=== PATIENT | male | born 1965 | race Caucasian/White ===

== ENCOUNTER 2016-12-03 06:00 | Inpatient (IN) | payer MEDICARE, MEDICAID ==
[~2016-12-03] VITALS: Ht 167.6 cm; Wt 53.6 kg
[2016-12-03 06:05] VITALS: Ht 167.6 cm; Wt 53.6 kg
[2016-12-03] MEDS ORDERED: SOD CHLORIDE 0.9% 1,000 ML IV STA (06:21)
[2016-12-03] MEDS ORDERED: ONDANSETRON 4 MG INJ IV STA (06:21)
[2016-12-03] MEDS ORDERED: DIAZEPAM 5 MG/ML SYG IV ONE ×2 (06:30→08:30)
--- NOTE | 2016-12-03 06:36 | ERA ---
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 His family tells me that he has not seen a physician steadily for his disease. The family states that they have been trying to get into the movement clinic at [facility]. He has not recently had any fever, coughing, congestion, vomiting, or diarrhea. They state over the last few days his disease has progressed to the point where he has lost his bladder and urinated on the couch and in his bed. He can no longer control his movements at all. He is here because he is having muscle pain secondary to constant movement. He has not been taking any medications for the disease. Nothing seems to help or worsen his symptoms. Remainder of the systems are negative. ROS All systems reviewed and are negative except as per history of present illness. Physical Exam Vitals Vital Signs Date Time Temp Pulse Resp B/P Pulse Ox O2 Delivery O2 Flow Rate FiO2 12/03/16 06:05 97.9 103 22 122/81 100 Physical Exam Const: [] Well-developed thin male on the bed with uncontrollable choreiform movement Head: Atraumatic normocephalic Eyes: Normal Conjunctiva ENT: Normal External Ears, Nose and Mouth. Neck: Full range of motion. Resp: Clear to auscultation bilaterally Cardio: Regular rate and rhythm, no murmurs Abd: Soft, non tender, non distended. Normal bowel sounds Skin: No petechiae or rashes Back: No midline or flank tenderness Ext: No cyanosis, or edema Neur: Awake and alert Result Diagram: 12/03/16 0649 12/03/16 0649 Results 24 hrs Laboratory Tests Test 12/03/16 06:49 White Blood Count 7.610^3/ul Red Blood Count 4.1110^6/ul Hemoglobin 11.7g/dl Hematocrit 35.3% Mean Corpuscular Volume 85.9fl Mean Corpuscular Hemoglobin 28.5pg Mean Corpuscular Hemoglobin Concent 33.1g/dl Red Cell Distribution Width 12.9% Platelet Count 75885^3/UL Mean Platelet Volume 9.9fl Neutrophils % 75.7% Lymphocytes % 16.4% Monocytes % 6.6% Eosinophils % 0.5% Basophils % 0.4% Nucleated Red Blood Cells % 0.0/100WBC Neutrophils # 5.810^3/ul Lymphocytes # 1.310^3/ul Monocytes # 0.510^3/ul Eosinophils # 0.010^3/ul Basophils # 0.010^3/ul Nucleated Red Blood Cells # 0.010^3/ul Sodium Level 142mmol/L Potassium Level 3.8mmol/L Chloride Level 111mmol/L Carbon Dioxide Level 27mmol/L Anion Gap 8 Blood Urea Nitrogen 34mg/dl Creatinine 0.64mg/dl Glucose Level 105mg/dl Calcium Level 8.9mg/dl Total Bilirubin 0.6mg/dl Direct Bilirubin 0.00mg/dl Indirect Bilirubin 0.6mg/dl Aspartate Amino Transf (AST/SGOT) 53IU/L Alanine Aminotransferase (ALT/SGPT) 51IU/L Alkaline Phosphatase 115IU/L Creatine Kinase 1080IU/L Total Protein 6.9g/dl Albumin 4.0g/dl Globulin 2.90g/dl Albumin/Globulin Ratio 1.37 Current Medications Medications (Trade) Dose Ordered Sig/Ramona Route PRN Reason Start Time Stop Time Status Last Admin Dose Admin Sodium Chloride (NS) 1,000 ml @ 1,000 mls/hr Q1H STAT IV 12/03/16 06:21 12/03/16 07:20 DC 12/03/16 06:54 Diazepam (Valium) 5 mg ONCE ONCE IV 12/03/16 06:30 12/03/16 06:31 DC 12/03/16 06:54 Ondansetron HCl (Zofran Inj) 4 mg ONCE STAT IV 12/03/16 06:21 12/03/16 06:24 DC 12/03/16 06:54 Diazepam (Valium) 5 mg ONCE ONCE IV 12/03/16 08:30 12/03/16 08:31 DC 12/03/16 08:22 Procedures/MDM Differential includes but is not limited to uncontrolled [place]'s chorea, rhabdomyolysis secondary to muscle breakdown, dehydration Patient is unable to lie still for CT of his head. 0830: Evaluation of the patient reveals that he feels better after the Valium IV and the IV fluids. He still has the uncontrolled choreiform movements. Given the fact that he is experiencing some significant muscle breakdown I feel it is most prudent to have him admitted to the hospital for further evaluation and treatment by a neurologist. Departure Diagnosis: Primary Impression: [place]'s chorea Additional Impressions: Rhabdomyolysis Qualified Code: M62.82 - Non-traumatic rhabdomyolysis Dehydration Condition: VALENTINO Guillaume December 03, 2016 06:36
[2016-12-03 06:58] LABS: ADD SCAN DIFF NO
[2016-12-03 07:00] LABS: BASOPHILS % 0.4 % (0.0-2.0); EOSINOPHILS % 0.5 % (0.0-7.0); HEMATOCRIT 35.3 % (42.0-52.0); HEMOGLOBIN 11.7 g/dl (14.0-18.0); LYMPHOCYTES # 1.3 10^3/ul (0.8-2.9); LYMPHOCYTES % 16.4 % (15.0-51.0); MEAN CORPUSCULAR HEMOGLOBIN 28.5 pg (29.0-33.0); MEAN CORPUSCULAR HGB CONC 33.1 g/dl (32.0-37.0); MEAN CORPUSCULAR VOLUME 85.9 fl (82.0-101.0); MEAN PLATELET VOLUME 9.9 fl (7.4-10.4); MONOCYTE # 0.5 10^3/ul (0.3-0.9); MONOCYTES % 6.6 % (0.0-11.0); NEUTROPHIL # 5.8 10^3/ul (1.6-7.5); NEUTROPHILS % 75.7 % (39.0-77.0); PLATELET COUNT 268 10^3/UL (140-415); RED BLOOD COUNT 4.11 10^6/ul (4.70-6.10); RED CELL DISTRIBUTION WIDTH 12.9 % (11.5-14.5); WHITE BLOOD COUNT 7.6 10^3/ul (4.8-10.8)
--- NOTE | 2016-12-03 07:09 | RADRPT ---
PROCEDURE: XR Chest. CLINICAL INDICATION: Shortness of breath. Altered mental status. TECHNIQUE: Single frontal view. COMPARISON: None. FINDINGS: The lungs are clear. The heart size is normal. There is no pleural effusion. There is no pneumothorax. IMPRESSION: 1. Normal chest radiograph. RPTAT: QQ .Farzad Peters MD, MD Date Time Electronically viewed and signed by .Farzad Peters MD, MD on 12/03/2016 07:09 .R/
[2016-12-03 07:30] LABS: ALBUMIN/GLOBULIN RATIO 1.37; BILIRUBIN,INDIRECT 0.6 mg/dl (0-1.1); BILIRUBIN,TOTAL 0.6 mg/dl (0.2-1.3); CALCIUM 8.9 mg/dl (8.4-10.2); CREATININE 0.64 mg/dl (0.61-1.24); POTASSIUM 3.8 mmol/L (3.5-5.1); TOTAL PROTEIN 6.9 g/dl (6.1-8.1)
[2016-12-03] MEDS ORDERED: ONDANSETRON 4 MG INJ IV PRN ×2 (09:30→11:00)
[2016-12-03] MEDS ORDERED: ACETAMINOPHEN 325 MG TAB PO PRN ×2 (09:30→11:00)
[2016-12-03 10:26] VITALS: TEMP 98
[2016-12-03 11:05] VITALS: BP 95/61; PULSE 83; RESP 18
[2016-12-03] MEDS: DEXTROSE 5%-0.9% NACL 1,000 ML IV SCH ×2 (11:44→22:22)
[2016-12-03] MEDS: HEPARIN 5,000 UNIT/0.5 ML VIAL SC SCH ×2 (11:50→21:11)
--- NOTE | 2016-12-03 12:03 | HP ---
DATE OF ADMISSION: 12/03/2016 REASON FOR ADMISSION: Decreased p.o. intake, increasing agitation. 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 Since that time, he has been slowly deteriorating. The patient was seen by neurologist more than 5 years ago and since that time has had no further followup. He stays on the couch of his next of kin, otherwise, requires significant assistance with feeding. Recently, he mortensen s had worsening of his symptoms over the past 4 to 5 days with increased uncontrolled movements and decreased p.o. intake. Family state that he requires significant assistance and they are unable to provide this at present. They also state that they have been trying to get him to [facility] Neurology fo r further evaluation, but have been largely unsuccessful. On admission, the patient was found to mortensen ve mild rhabdomyolysis, otherwise, appears comfortable but has significant choreiform movements. PAST MEDICAL HISTORY: As above. MEDICATIONS PRIOR TO ADMISSION: None. ALLERGIES: NONE. SOCIAL HISTORY: Nonsmoker, no alcohol, no history of drug use. FAMILY HISTORY: His brother has Colby's chorea. SYSTEMS REVIEW: A 12-point review of systems currently unable to perform. PHYSICAL EXAMINATION: GENERAL: Chronically ill appearing gentleman significant irregular choreiform movements. Responds to occasional questions. VITAL SIGNS: Temperature 98, pulse is 94, blood pressure 100/57, O2 saturation 98% on room air. NECK: Supple. No JVD or lymphadenopathy. CARDIAC: S1, S2, no added sounds or murmurs. CHEST: Diminished air entry bilaterally. ABDOMEN: Soft, nontender. No guarding or rebound. EXTREMITIES: No cyanosis, clubbing, edema. NEUROLOGIC: As above. LABORATORY DATA: White count 6.7, hemoglobin 11.7, platelets within normal limits. BUN 34, creatin ine 0.64. Creatinine kinase 1080. EKG showed normal sinus rhythm, no acute ischemic changes. IMPRESSION AND PLAN: Recent deterioration in a patient with advanced [place]mon's chorea. Deterior ation could be secondary to underlying infection including urinary tract infection or could be a darby ural progression of his neurological disorder. The patient has evidence of mild rhabdomyolysis, lik bruce secondary to neuromuscular disease and dehydration. PLAN: 1. IV fluid rehydration. 2. Correct electrolytes. 3. Speech therapy evaluation. 4. Neurology evaluation. 5. warehouse production worker and case management input as the patient will likely need placement at the request of his next of kin. Dictated By: DAYLIN GALDAMEZ/KELVIN Conf#: [id number] DID#: [id number]
[2016-12-03] MEDS: LORAZEPAM 2 MG INJ IV PRN (13:06)
[2016-12-03] MEDS ORDERED: morphine 2 MG INJ IV PRN (15:30)
[2016-12-03] MEDS ORDERED: LORAZEPAM 2 MG INJ IV ONE (15:30)
--- NOTE | 2016-12-03 17:19 | CONS ---
DATE OF ADMISSION: 12/03/2016 DATE OF CONSULTATION: 12/03/2016 REASON FOR CONSULTATION: Rhabdomyolysis, azotemia. PHYSICIAN REQUESTING CONSULT: Dr. Cole. HISTORY OF PRESENT ILLNESS: This is a 50-year-old male with Colby's chorea diagnosed approxim xochitl 12 years ago who has had progression of his disease. The patient has not been followed up by neurologist. Last visit was approximately several years ago. The history is obtained by his family at bedside who stated over the last several days they have noticed worsening movements, uncontrolle d, decreased oral intake, as a result the patient's family brought him to [facility] for evaluation. Upon arrival, the patient's blood pressure was normotensive with systolic pressu re of 122. Laboratory data showed evidence of rhabdomyolysis with a CK level 1000 and underlying az otemia. In the emergency room, the patient was given IV hydration with normal saline and was placed on continuous fluid resuscitation. Patient was also given Zofran, Ativan and Valium in the emergen cy room. In terms of the patient's renal history, the patient had no prior history of acute kidney injury or chronic kidney disease. The patient has no recent history of NSAID use. No history of contrast exp osure. The patient is not taking any antihypertensive medications at home. There has been no repor ts of frothy urine, no hematuria, dysuria or hemoptysis. PAST MEDICAL HISTORY: As stated above, history of progressive Donley's chorea. PAST SURGICAL HISTORY: None. ALLERGIES: NO KNOWN DRUG ALLERGIES. FAMILY HISTORY: No family history of kidney disease or heart disease. Patient's brother has Huntin gton's chorea. SOCIAL HISTORY: Does not drink, smoke or do drugs. MEDICATIONS: The patient's medications have been reviewed. None. REVIEW OF SYSTEMS: A 14-point review of systems was conducted. Pertinent positives in HPI, otherwi se negative. Please note history is obtained by reviewing medical records and speaking to patient's family. PHYSICAL EXAMINATION: VITAL SIGNS: Blood pressure 95/61, respiration 18, pulse 83, temperature 98.7. HEENT: Head is normocephalic. NECK: Supple. HEART: Regular rate. LUNGS: Show diminished breath sounds at the base. ABDOMEN: Soft, nontender to palpation. No rebound or guarding. EXTREMITIES: Negative for clubbing, cyanosis. No edema. DERMATOLOGIC: No rashes. MUSCULOSKELETAL: No joint effusions. NEUROLOGIC: The patient has uncontrolled upper and lower extremity irregular choreiform movements. LABORATORY DATA: Shows sodium 142, potassium 3.9, chloride 111, BUN 34, creatinine 0.64. AST 53. CK level is 1000, white count 7.6, hemoglobin 11.7, hematocrit 35.3, platelet count is 268. The pat ient's chest x-ray shows no acute findings. ASSESSMENT AND PLAN: This is a 50-year-old male who presents with: 1. Rhabdomyolysis. The patient's etiology is secondary to choreiformic irregular movements muscle contractions. The patient's CK levels are mildly elevated at 1000. Recommendation to continue IV f luids at current rate. We will monitor closely for any signs of worsening renal dysfunction, acute kidney injury. Otherwise, we will continue to monitor closely. 2. Azotemia, etiology is likely secondary to volume depletion. Plan at this point is to check urin alysis with microanalysis. Continue to monitor renal function closely in the setting of rhabdomyoly sis. Continue IV hydration. 3. Anemia, likely of chronic disease. We will continue to monitor hemoglobin and hematocrit levels . 4. Progressive Colby's chorea. Neurologic consult has been called. We will follow up recomme ndations. 5. Hyperchloremic metabolic acidosis. We will continue to monitor. 6. Gastrointestinal and deep venous thrombosis prophylaxis. Thank you, Dr. Cole for this interesting consult. It will be a pleasure to follow the patient wi th you throughout the hospital course. Dictated By: HANNA SAMS/KELVIN Conf#: [id number] DID#: [id number]
[2016-12-03 19:15] LABS: ADD UMIC YES; URINE BILIRUBIN (Dip) NEGATIVE (NEGATIVE); URINE BLOOD (Dip) 2+ (NEGATIVE); URINE COLOR LT. YELLOW (YELLOW); URINE GLUCOSE (Dip) NEGATIVE (NEGATIVE); URINE KETONES (Dip) NEGATIVE (NEGATIVE); URINE LEUKOCYTE ESTERASE (Dip) NEGATIVE (NEGATIVE); URINE NITRITE (Dip) NEGATIVE (NEGATIVE); URINE TOTAL PROTEIN (Dip) NEGATIVE (NEGATIVE); URINE UROBILINOGEN (Dip) 1.0 E.U./dL (0.1-1.0)
[2016-12-03 19:35] LABS: SQUAMOUS EPITHELIAL CELL,UR FEW
[2016-12-03 19:56] VITALS: BP 104/61; RESP 22
[2016-12-03] MEDS: AMANTADINE 100 MG CAP PO SCH (22:22)
--- NOTE | 2016-12-04 03:28 | CONS ---
DATE OF ADMISSION: 12/03/2016 DATE OF CONSULTATION: 12/03/2016 TYPE OF CONSULTATION: Neurology. Thank you, Dr. Brown, for your kind referral for evaluation of [place]'s chorea. 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 His son is present at bedside providing details of the history. The patient does have memory impairment and, at times, seems to be slightly confused and forgetful. No depression. He is constantly exhibiting choreiform movements and needs assistance with every activity of daily living. He is able to ambulate to the bathroom with assistance of the son. He presented because he had decreased amount of p.o. intake for the last few days and seemed to be having it and also had episodes of also had some worsening of the movements in the last few days. In the hospital, he had a chest x-ray which was normal. His labs shows a BUN 34 , creatinine 0.64. Rest of comprehensive metabolic panel, AST 53, alkaline phosphatase normal. CK 1000, hemoglobin 11, hematocrit 35, normal WBCs and platelets. Urinalysis: 2+ hemoglobin. The patient was diagnosed with dehydration and some rhabdomyolysis. His medications prior to admission were none. According to the family, he was seeing some neurologist about 5 years ago. Family is trying to arrange an appointment to [facility] at [facility]. Patient's son states that he and his work and he is having problems taking care of his father and asking what other options are available. CURRENT MEDICATIONS: Currently he was put on Ativan 1 mg which also only helps movements very briefly. ALLERGIES: PENICILLIN. SOCIAL HISTORY: No alcohol, tobacco, drug use. FAMILY HISTORY: Ashford's disease. PHYSICAL EXAMINATION: VITAL SIGNS: On examination today, 98.6 temperature, 74 pulse, 22 respirations , 104/61 blood pressure. GENERAL: Not in acute distress, lying in bed, constant choreiform movements of upper and lower extremities. According to the sitter, at times he has episodes of much more noticeable flailing movements. HEENT: Normocephalic, atraumatic head. NECK: No thyromegaly or lymphadenopathy. LUNGS: Clear to auscultation bilaterally. CARDIAC: Normal cardiac rhythm and sounds. ABDOMEN: Soft, nontender. EXTREMITIES: No cyanosis, clubbing or edema. NEUROLOGIC: He is awake, alert, and oriented x2 with fluent speech. Cranial nerve examination shows intact visual ratliff bilaterally. Pupils sluggish from 3 to 2 mm bilaterally. Extraocular movements seem to be intact. Symmetrical face, constant facial choreiform movements and grimacing. Tongue is in midline briefly but then also affected by excessive movements. Patient moves all extremities symmetrically on request but interrupted by involuntary movements. Unable to check reflexes. Downgoing toes bilaterally. IMPRESSION: Known diagnosis of Ashford disease. The patient suffers from severe choreiform movements. I think that patient should be followed by either movement disorder specialist or at specialized [facility]. Treatment involves medications which are not even available in the hospital, sometimes movement disorder specialist uses tetrabenazine, rilutek, amantadine, antipsychotic medications and usually most of the medicines are started on low dose and built up gradually. I think I could start the patient on amantadine 200 mg twice daily. The dose could be increased in the future. Continue current treatment otherwise. Thank you very much for this interesting consultation. Dictated By: ONEYDA TEIXEIRA/KELVIN Conf#: [id number] DID#: [id number] MTDD
[2016-12-04] MEDS: DEXTROSE 5%-0.9% NACL 1,000 ML IV SCH ×2 (06:03→17:00)
[2016-12-04 06:10] LABS: ADD SCAN DIFF NO
[2016-12-04 06:21] LABS: BASOPHILS % 0.3 % (0.0-2.0); EOSINOPHILS # 0.1 10^3/ul (0.0-0.5); HEMATOCRIT 35.8 % (42.0-52.0); LYMPHOCYTES # 1.5 10^3/ul (0.8-2.9); LYMPHOCYTES % 25.6 % (15.0-51.0); MEAN CORPUSCULAR HEMOGLOBIN 28.9 pg (29.0-33.0); MEAN CORPUSCULAR HGB CONC 33.5 g/dl (32.0-37.0); MEAN CORPUSCULAR VOLUME 86.3 fl (82.0-101.0); MEAN PLATELET VOLUME 10.2 fl (7.4-10.4); MONOCYTE # 0.5 10^3/ul (0.3-0.9); MONOCYTES % 7.7 % (0.0-11.0); NEUTROPHIL # 3.9 10^3/ul (1.6-7.5); NEUTROPHILS % 65.1 % (39.0-77.0); PLATELET COUNT 261 10^3/UL (140-415); RED BLOOD COUNT 4.15 10^6/ul (4.70-6.10); RED CELL DISTRIBUTION WIDTH 12.8 % (11.5-14.5)
[2016-12-04 06:53] LABS: CALCIUM 8.6 mg/dl (8.4-10.2); CREATININE 0.6 mg/dl (0.61-1.24); PHOSPHORUS 2.8 mg/dl (2.5-4.9); POTASSIUM 4.1 mmol/L (3.5-5.1)
[2016-12-04] MEDS: AMANTADINE 100 MG CAP PO SCH ×2 (09:56→21:48)
[2016-12-04] MEDS: HEPARIN 5,000 UNIT/0.5 ML VIAL SC SCH ×2 (10:09→22:08)
--- NOTE | 2016-12-04 11:24 | PN ---
DATE: 12/04/2016 SUBJECTIVE: The patient continues to have choreiform movement. No other events noted. No hemoptys is, hematemesis or hematochezia. OBJECTIVE: VITAL SIGNS: Blood pressure 104/61, respirations 22, pulse 74, temperature 98.6. GENERAL: The patient has writhing choreiform movements. HEENT: Normocephalic, pupils reactive. NECK: Supple. HEART: Regular rate. LUNGS: Show diminished breath sounds at base. ABDOMEN: Soft, nontender to palpation without rebound or guarding. EXTREMITIES: Negative for clubbing, cyanosis, edema. DERMATOLOGIC: No rashes. MUSCULOSKELETAL: No joint effusions. NEUROLOGIC: No change in exam. MEDICATIONS: The patient's medications have been reviewed. LABORATORY DATA: Shows sodium 136, potassium 4.1, chloride 105, BUN 18, creatinine 0.60. White cou nt 6.0, hemoglobin 10.0, hematocrit 35.8, platelet count is 261. ASSESSMENT AND PLAN: 1. Rhabdomyolysis secondary to choreiform movements. The patient's CK levels have been improving. Continue IV fluids. No evidence of acute kidney injury at this time. Continue to monitor closely. 2. Azotemia secondary to volume depletion, improving. Continue IV hydration. 3. Anemia. Continue to monitor hemoglobin and hematocrit levels. 4. Progressive [place] chorea. Neurology has been called. Follow up recommendations. 5. Metabolic acidosis, improved. 6. Gastrointestinal and deep venous thrombosis prophylaxis. Dictated By: HANNA SAMS/KELVIN Conf#: [id number] DID#: [id number]
--- NOTE | 2016-12-04 11:51 | PN ---
Date/Time of Note Date/Time of Note DATE: 12/04/16 TIME: 11:47 Assessment/Plan VTE Prophylaxis VTE Prophylaxis Intervention: SCD's Lines/Catheters IV [facility]ter [facility] (from [facility]): Peripheral IV Assessment/Plan Assessment/Plan 1. acute Rhabdomyolysis. -- on IV fluids CK total imrpoving, will follow up on CK in AM 2. acute prerenal azotemia on IVF hydration 3. Anemia, likely of chronic disease. 4. Progressive Colby's chorea. s/p Neurology consult 5. severe agitation/violent behaviour- ativan PO BID and IV prn . Subjective 24 Hr Interval Summary Free Text/Dictation pt is more agitated and moving very violently Exam/Review of Systems Vital Signs Vitals Vital Signs Date Time Temp Pulse Resp B/P Pulse Ox O2 Delivery O2 Flow Rate FiO2 12/03/16 19:56 98.6 74 22 104/61 98 12/03/16 11:05 Room Air Intake and Output 12/03/16 12/03/16 12/04/16 15:00 23:00 07:00 Intake Total 3400 ml 1680 ml Output Total 200 ml Balance 3200 ml 1680 ml Exam GENERAL: Chronically ill appearing gentleman significant irregular choreiform movements. Responds to occasional questions. NECK: Supple. No JVD or lymphadenopathy. CARDIAC: S1, S2, no added sounds or murmurs. CHEST: Diminished air entry bilaterally. ABDOMEN: Soft, nontender. No guarding or rebound. EXTREMITIES: No cyanosis, clubbing, edema. NEUROLOGIC: As above. Results Result Diagram: 12/04/16 0550 12/04/16 0550 Results 24 hrs Laboratory Tests Test 12/03/16 18:00 12/04/16 05:50 Urine Color LT. YELLOW Urine Clarity CLEAR Urine pH 6.0 Urine Specific [place] 1.025 Urine Ketones NEGATIVE Urine Nitrite NEGATIVE Urine Bilirubin NEGATIVE Urine Urobilinogen 1.0 E.U./dL Urine Leukocyte Esterase NEGATIVE Urine Microscopic RBC 2-5 Urine Microscopic WBC 0-2 Urine Squamous Epithelial Cells FEW Urine Hemoglobin 2+ H Urine Random Creatinine 133.83 Urine Random Sodium > 198 H Urine Glucose NEGATIVE Urine Total Protein 7.0 White Blood Count 6.0 # Red Blood Count 4.15 L Hemoglobin 12.0 L Hematocrit 35.8 L Mean Corpuscular Volume 86.3 Mean Corpuscular Hemoglobin 28.9 L Mean Corpuscular Hemoglobin Concent 33.5 Red Cell Distribution Width 12.8 Platelet Count 261 Mean Platelet Volume 10.2 Neutrophils % 65.1 Lymphocytes % 25.6 Monocytes % 7.7 Eosinophils % 1.0 Basophils % 0.3 Nucleated Red Blood Cells % 0.0 Neutrophils # 3.9 Lymphocytes # 1.5 Monocytes # 0.5 Eosinophils # 0.1 Basophils # 0.0 Nucleated Red Blood Cells # 0.0 Sodium Level 136 Potassium Level 4.1 Chloride Level 105 Carbon Dioxide Level 28 Anion Gap 7 L Blood Urea Nitrogen 18 # Creatinine 0.60 L Glucose Level 106 Calcium Level 8.6 Phosphorus Level 2.8 Magnesium Level 2.0 Creatine Kinase 790 H Medications Medications Current Medications Dextrose/Sodium Chloride (D5-NS) 1,000 ml @ 100 mls/hr Q10H IV Last administered on 12/03/16 22:22; Admin Dose 100 MLS/HR; Start 12/03/16 at 11:00 Acetaminophen (Tylenol Tab) 325 mg Q6H PRN PO PAIN AND OR ELEVATED TEMP; Start 12/03/16 at 11:00 Ondansetron HCl (Zofran Inj) 4 mg Q6H PRN IV NAUSEA AND/OR VOMITING; Start at 11:00 Heparin Sodium (Porcine) (Heparin (5000 Units/0.5 ml)) 5,000 unit BID SC Last administered on 12/04/16 10:09; Admin Dose 5,000 UNIT; Start 12/03/16 at 11:00 Lorazepam (Ativan) 1 mg Q6H PRN IV AGITATION Last administered on 12/03/16 13: 06; Admin Dose 1 MG; Start 12/03/16 at 13:00 Morphine Sulfate (morphine) 2 mg Q4H PRN IV PAIN; Start 12/03/16 at 15:30 Amantadine HCl (Symmetrel) 100 mg BID PO Last administered on 12/04/16 09:56; Admin Dose 100 MG; Start 12/03/16 at 21:00 Lorazepam (Ativan) 1 mg ONCE ONCE PO ; Start 12/04/16 at 12:00; Stop 12/04/16 at 12:01 Lorazepam (Ativan) 1 mg HS PO ; Start 12/04/16 at 21:00 SHELLY DELUNA MD December 04, 2016 11:51
[2016-12-04 12:00] VITALS: BP 110/75; PULSE 71; RESP 18
[2016-12-04] MEDS ORDERED: LORAZEPAM 1 MG TAB PO ONE (12:00)
[2016-12-04] MEDS: LORAZEPAM 2 MG INJ IV PRN (16:33)
[2016-12-04 20:06] VITALS: BP 111/63; RESP 20
[2016-12-04] MEDS ORDERED: LORAZEPAM 1 MG TAB PO SCH (21:00)
[2016-12-05] MEDS: LORAZEPAM 2 MG INJ IV PRN ×2 (03:11→09:25)
[2016-12-05 06:45] LABS: POTASSIUM 3.8 mmol/L (3.5-5.1)
[2016-12-05 06:48] LABS: CREATININE 0.64 mg/dl (0.61-1.24)
[2016-12-05 06:49] LABS: CALCIUM 8.6 mg/dl (8.4-10.2); MAGNESIUM 2.2 mg/dl (1.7-2.5); PHOSPHORUS 3.1 mg/dl (2.5-4.9)
[2016-12-05 08:00] VITALS: RESP 20
[2016-12-05] MEDS: AMANTADINE 100 MG CAP PO SCH (08:46)
[2016-12-05] MEDS: HEPARIN 5,000 UNIT/0.5 ML VIAL SC SCH (08:49)
[2016-12-05 09:31] VITALS: BP 109/68; PULSE 68; RESP 20
--- NOTE | 2016-12-05 10:52 | PN ---
DATE: 12/05/2016 SUBJECTIVE: The patient had no clinical acute events overnight. The patient continues to have chor eiform movements without any significant change. The patient continues to be agitated. OBJECTIVE: VITAL SIGNS: Blood pressure 109/68, respirations 20, pulse 68, temperature 98.0. HEENT: Head is normocephalic. NECK: Supple. HEART: Regular rate. LUNGS: Show diminished breath sounds at the bases. ABDOMEN: Soft, nontender to palpation. No rebound or guarding. EXTREMITIES: Negative for clubbing, cyanosis. No edema. DERMATOLOGIC: No rashes. MUSCULOSKELETAL: No joint effusions. NEUROLOGIC: No change in exam. MEDICATIONS: The patient's medications have been reviewed. LABORATORY DATA: Shows a BMP within normal limits. CK level is 494. White count 6.0, hemoglobin 1 0.0, hematocrit 35.8, platelet count is 261. ASSESSMENT AND PLAN: 1. Rhabdomyolysis secondary to choreiform movements. The patient's CK levels are improving. The p atient is status post IV fluids. No evidence of acute kidney injury. Continue to monitor. We will recheck CK level in the a.m. 2. Azotemia secondary to volume depletion, improved. 3. Anemia. Continue to monitor hemoglobin and hematocrit levels. 4. Progressive [place]'s chorea. Follow up neurology recommendations. 5. Gastrointestinal and deep venous thrombosis prophylaxis. 6. Status post metabolic acidosis. Dictated By: HANNA SAMS/KELVIN Conf#: [id number] DID#: [id number]
[2016-12-05 13:43] LABS: MICROALBUMIN 0.7 mg/dL
== END 2016-12-05 12:55 | disposition left against medical advice (07) | DRG 57 ==
LOC: E/R 06:00 → MS2 09:08
PROVIDERS: ADMIT Family Medicine; ATTEND Family Medicine
DX: G10 Huntington's disease (principal); M62.82 Rhabdomyolysis; E87.8 Other disorders of electrolyte and fluid balance, not elsewhere classified; E86.0 Dehydration; D63.8 Anemia in other chronic diseases classified elsewhere; N25.89 Other disorders resulting from impaired renal tubular function; E86.9 Volume depletion, unspecified; R45.1 Restlessness and agitation
CPT/HCPCS: 36415; 71010; 80048; 80053; 81001; 81003; 82043; 82550; 83735; 84100; 84155; 84300; 85025; 92526; 92610; 93005; 96374; 96375; J1644; J2060; J2405; J3360; J7030; J7042